=== PATIENT | male | born 1940 | race Caucasian/White ===

== ENCOUNTER → 2017-02-03 | Outpatient (CLI) | payer MEDICARE, OTHER | END | disposition home or self-care (01) | LOC: GMAB 08:00 | PROVIDERS: ATTEND Family Medicine | DX: I10 Essential (primary) hypertension (principal); E03.9 Hypothyroidism, unspecified; Z12.5 Encounter for screening for malignant neoplasm of prostate | CPT/HCPCS: 84439; 84443; 84481; G0103 ==

== ENCOUNTER 2017-05-27 01:13 | Emergency (ER) | payer MEDICARE, OTHER ==
[2017-05-27 01:40] VITALS: TEMP 98
--- NOTE | 2017-05-27 02:09 | RAD ---
EXAM: AP CHEST RADIOGRAPH CLINICAL INDICATION: Left shoulder pain. COMPARISON: Comparison chest radiographs of March 06, 2014. FINDINGS: Intact cardiac pacer components new since the comparison chest radiograph appear in appropriate position on this single view. Cardiac size and pulmonary vasculature are normal. Lungs are clear. No pleural effusions or pneumothorax. No hilar or mediastinal lymphadenopathy. No mediastinal widening. No extraluminal bowel gas under the hemidiaphragms. Bones are intact on this single view. IMPRESSION: Normal portable AP chest radiograph. Electronically signed by: Erick Esteban MD 05/27/2017 2:08 AM [facility]
--- NOTE | 2017-05-27 02:10 | RAD ---
2 VIEWS LEFT SHOULDER RADIOGRAPHIC SERIES. INDICATIONS: Left shoulder pain. COMPARISONS: None. FINDINGS: Partially visualized degenerative disease in the intact left acromioclavicular joint. The left glenohumeral joint appears normal. Partially visualized left lungs are intact. Left lung is clear. No left apical pneumothorax or left apical lung lesion. IMPRESSION: Normal for age left shoulder radiographs. Electronically signed by: Erick Esteban MD 05/27/2017 2:09 AM SALES CLERK
--- NOTE | 2017-05-27 04:28 | ED.PDOC ---
History of Present Illness - General Chief Complaint: General Stated Complaint: shoulder pain and dizziness Time Seen by Provider: 05/27/17 01:20 Source: patient Exam Limitations: no limitations - History of Present Illness Initial Comments: The patient is a 77-year-old male presenting to the emergency room secondary to pain in his left shoulder that did become severe and caused him to be dizzy. He has had pain in the shoulder with flexion at the shoulder intermittently over the past year. He has not had any recent trauma to it. He is not having any chest pain or shortness of breath though he does have a significant cardiac history. No palpitations. No syncope or near syncope. Timing/Duration: 1/2 hour Severity: moderate Improving Factors: nothing Worsening Factors: movement Associated Symptoms: denies symptoms Allergies/Adverse Reactions: Allergies NO KNOWN ALLERGY Allergy (Verified 05/27/17 01:40) Home Medications: Ambulatory Orders Aspirin [Goodsense Aspirin] 325 mg PO BID 03/06/14 Furosemide Tab [Lasix Tab] 40 mg PO DAILY 03/06/14 Gabapentin 300 mg PO BEDTIME 03/06/14 Isosorbide Mononitrate [Imdur] 15 mg PO DAILY 03/06/14 Levocetirizine Dihydrochloride [Xyzal] 5 mg PO DAILY 03/06/14 Levothyroxine Sodium 75 mcg PO DAILY 03/06/14 Lisinopril 5 mg PO DAILY 03/06/14 Potassium Chloride [Micro-K] 10 meq PO DAILY 03/06/14 Simvastatin 40 mg PO DAILY 03/06/14 Tamsulosin [Flomax] 0.4 mg PO DAILY 03/06/14 predniSONE [Prednisone] 20 mg PO DAILY #3 tab 05/27/17 Review of Systems - Review of Systems Constitutional: States: no symptoms reported EENTM: States: no symptoms reported Respiratory: States: no symptoms reported Cardiology: States: no symptoms reported Gastrointestinal/Abdominal: States: no symptoms reported Genitourinary: States: no symptoms reported Musculoskeletal: States: see HPI Skin: States: no symptoms reported Neurological: States: anxiety Endocrine: States: no symptoms reported All other Systems: No Change from Baseline Past Medical History (General) - Patient Medical History Hx Seizures: No Hx Stroke: No Hx Dementia: No Hx Asthma: No Hx of COPD: No Hx Cardiac Disorders: Yes - cardiac stents placed following an episode of angina Hx Congestive Heart Failure: Yes Hx Pacemaker: Yes Hx Hypertension: Yes Hx Thyroid Disease: Yes Hx Diabetes: No Hx Gastroesophageal Reflux: Yes Hx Renal Disease: No Hx Cancer: No Hx of HIV: No Hx Hepatitis C: No Hx MRSA: No Surgical History: no surgical history - Vaccination History Hx Influenza Vaccination: No Hx Pneumococcal Vaccination: No - Social History Hx Tobacco Use: No Family Medical History - Family History Mother Living Status: Hx Family Congestive Heart Failure: Yes Physical Exam - Physical Exam General Appearance: Alert, Anxious, No apparent distress Eye Exam: bilateral normal Ears, Nose, Throat: hearing grossly normal, normal ENT inspection, normal pharynx Neck: full range of motion, supple Respiratory: lungs clear, normal breath sounds, no respiratory distress, no accessory muscle use Cardiovascular/Chest: normal peripheral pulses, no edema, other - regular rate Peripheral Pulses: radial,right: 2+, radial,left: 2+, dorsalis pedis,right: 2+, dorsalis pedis,left: 2+ Gastrointestinal/Abdominal: non tender - obese, soft Rectal Exam: deferred Back Exam: normal inspection, no CVA tenderness Extremity: normal range of motion, non-tender, normal inspection, no pedal edema 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 He needs to do stretching exercises of the shoulder. He needs to discuss doing therapy for that tendon with his primary care doctor. Heat pad as well as icy hot may help. The patient will be written for 3 days of oral prednisone which may also help. He should discuss further treatment measures with his primary care doctor given his medical history. ER warnings were given for any significant worsening. 2 sets of cardiac enzymes are negative. The patient has deferred a third set even though it increases our sensitivity for picking up cardiac ischemic events. - Results/Orders Results/Orders: 05/27/17 01:28 Telemetry .CONTINUOUS 05/27/17 01:30 EKG STAT shows a dual-chamber pacemaker. Difficult to interpret otherwise chest x-ray shows no evidence of any acute pathology.shoulder x-ray shows DJD of the acromioclavicular joint Laboratory Results - last 24 hr 05/27/17 05/27/17 05/27/17 01:35 01:35 01:35 WBC 7.4 RBC 4.67 L Hgb 13.9 L Hct 40.7 L MCV 87.2 MCH 29.7 MCHC 34.2 RDW 14.3 Plt Count 172 MPV 8.6 Absolute Neuts (auto) 4.50 Absolute Lymphs (auto) 1.70 Absolute Monos (auto) 0.70 Absolute Eos (auto) 0.40 Absolute Basos (auto) 0.10 Neutrophils % 61.0 Lymphocytes % 23.7 Monocytes % 9.3 H Eosinophils % 5.0 Basophils % 1.0 PT 10.1 INR 0.890 PTT (SP) 29.4 Sodium 139 Potassium 3.8 Chloride 104 Carbon Dioxide 26 Anion Gap 12.8 BUN 21 H Creatinine 1.25 BUN/Creatinine Ratio 16.8 Random Glucose 102 Serum Osmolality 280.7 Calcium 8.7 Magnesium 2.1 Total Bilirubin 1.5 H AST 23 ALT 21 Alkaline Phosphatase 53 Creatine Kinase 86 CK-MB (CK-2) 2.9 CK-MB (CK-2) % Not Reportable Troponin I 0.03 B-Natriuretic Peptide 44.8 Serum Total Protein 6.9 Albumin 4.0 Globulin 2.9 Albumin/Globulin Ratio 1.4 05/27/17 03:55 WBC RBC Hgb Hct MCV MCH MCHC RDW Plt Count MPV Absolute Neuts (auto) Absolute Lymphs (auto) Absolute Monos (auto) Absolute Eos (auto) Absolute Basos (auto) Neutrophils % Lymphocytes % Monocytes % Eosinophils % Basophils % PT INR PTT (SP) Sodium Potassium Chloride Carbon Dioxide Anion Gap BUN Creatinine BUN/Creatinine Ratio Random Glucose Serum Osmolality Calcium Magnesium Total Bilirubin AST ALT Alkaline Phosphatase Creatine Kinase 78 CK-MB (CK-2) CK-MB (CK-2) % Troponin I B-Natriuretic Peptide Serum Total Protein Albumin Globulin Albumin/Globulin Ratio repeat troponin was less than 0.02. Departure - Departure Clinical Impression: Biceps tendinitis Qualifiers: Laterality: left Qualified Code(s): M75.22 - Bicipital tendinitis, left shoulder Disposition: Discharge to Home or Self Care Condition: Fair Departure Forms: ED Discharge - Pt. Copy, Patient Portal Self Enrollment Instructions: DI for Shoulder Tendinopathy Diet: regular diet Activity: increase activity as tolerated Referrals: Charanjit Borrego MD [Primary Care Provider] - 1-5 Days Prescriptions: predniSONE [Prednisone] 20 mg PO DAILY #3 tab Home Medications: Ambulatory Orders Aspirin [Goodsense Aspirin] 325 mg PO BID 03/06/14 Furosemide Tab [Lasix Tab] 40 mg PO DAILY 03/06/14 Gabapentin 300 mg PO BEDTIME 03/06/14 Isosorbide Mononitrate [Imdur] 15 mg PO DAILY 03/06/14 Levocetirizine Dihydrochloride [Xyzal] 5 mg PO DAILY 03/06/14 Levothyroxine Sodium 75 mcg PO DAILY 03/06/14 Lisinopril 5 mg PO DAILY 03/06/14 Potassium Chloride [Micro-K] 10 meq PO DAILY 03/06/14 Simvastatin 40 mg PO DAILY 03/06/14 Tamsulosin [Flomax] 0.4 mg PO DAILY 03/06/14 predniSONE [Prednisone] 20 mg PO DAILY #3 tab 05/27/17 Additional Instructions: the patient is a 77-year-old male presenting to the emergency room secondary to left shoulder pain that clinically appears to be due to biceps tendinitis most likely from the short head. He needs to do stretching exercises of the shoulder. He needs to discuss doing therapy for that tendon with his primary care doctor. Heat pad as well as icy hot may help. The patient will be written for 3 days of oral prednisone which may also help. He should discuss further treatment measures with his primary care doctor given his medical history. ER warnings were given for any significant worsening.
[2017-05-27 05:04] VITALS: BP 149/72; O2SAT 99
== END 2017-05-27 04:50 | disposition home or self-care (01) ==
LOC: ER 01:13
DX: M75.22 Bicipital tendinitis, left shoulder (principal); I11.0 Hypertensive heart disease with heart failure; I50.9 Heart failure, unspecified; E07.9 Disorder of thyroid, unspecified; Z98.61 Coronary angioplasty status; Z95.0 Presence of cardiac pacemaker; Z79.82 Long term (current) use of aspirin

== ENCOUNTER → 2018-02-21 | Outpatient (CLI) | payer MEDICARE, OTHER | LOC: GMAE 10:57 | PROVIDERS: ATTEND Family Medicine | DX: E03.9 Hypothyroidism, unspecified (principal) ==

== ENCOUNTER 2018-10-02 13:00 | Emergency (ER) | payer MEDICARE, OTHER ==
--- NOTE | 2018-10-02 13:08 | ED.PDOC ---
History of Present Illness - General Time Seen by Provider: 10/02/18 13:05 Source: patient, RN notes reviewed, Vital Signs reviewed Additional Information: 78 YEAR OLD WITH KNOWN HISTORY OF CHF SP PACEMAKER ON LASIX PRESENTS WITH 24 HOUR HISTORY OF DIFFICULTY BREATHING DENIES CHEST PAIN FEVER PRODUCTIVE COUGH PATIENT IS HAVING DIFFICULTY BREATHING AT REST WORSE WITH EXERTION - History of Present Illness Timing/Duration: 24 hours Severity: moderate Improving Factors: nothing Worsening Factors: movement Associated Symptoms: denies symptoms, shortness of breath Allergies/Adverse Reactions: Allergies NO KNOWN ALLERGY Allergy (Verified 05/27/17 01:40) Home Medications: Ambulatory Orders Aspirin [Goodsense Aspirin] 325 mg PO DAILY 03/06/14 Furosemide Tab [Lasix Tab] 40 mg PO DAILY 03/06/14 Potassium Chloride [Micro-K] 10 meq PO DAILY 03/06/14 Simvastatin 40 mg PO DAILY 03/06/14 Doxazosin Mesylate 4 mg PO DAILY 10/02/18 Levothyroxine Sodium [Synthroid] 100 mcg PO DAILY 10/02/18 Meloxicam [Mobic] 7.5 mg PO BID 10/02/18 Metoprolol Succinate [Metoprolol Succinate ER] 12.5 mg PO DAILY 10/02/18 Review of Systems - Review of Systems Constitutional: States: no symptoms reported EENTM: States: no symptoms reported Respiratory: States: see HPI Cardiology: States: see HPI Gastrointestinal/Abdominal: States: no symptoms reported Genitourinary: States: no symptoms reported Musculoskeletal: States: no symptoms reported Skin: States: no symptoms reported Neurological: States: no symptoms reported Endocrine: States: no symptoms reported Hematologic/Lymphatic: States: no symptoms reported Past Medical History (General) - Patient Medical History Hx Seizures: No Hx Stroke: No Hx Dementia: No Hx Asthma: No Hx of COPD: No Hx Cardiac Disorders: Yes - cardiac stents placed following an episode of angina Hx Congestive Heart Failure: Yes Hx Pacemaker: Yes Hx Hypertension: Yes Hx Thyroid Disease: Yes Hx Diabetes: No Hx Gastroesophageal Reflux: Yes Hx Renal Disease: No Hx Cancer: No Hx of HIV: No Hx Hepatitis C: No Hx MRSA: No - Vaccination History Hx Influenza Vaccination: No Hx Pneumococcal Vaccination: No - Social History Hx Tobacco Use: No Family Medical History - Family History Mother Living Status: Hx Family Congestive Heart Failure: Yes Physical Exam - Physical Exam General Appearance: Alert, Comfortable Ears, Nose, Throat: hearing grossly normal, normal ENT inspection, normal pharynx Neck: non-tender, full range of motion, supple Respiratory: chest non-tender, lungs clear, normal breath sounds, no respiratory distress, no accessory muscle use Cardiovascular/Chest: normal peripheral pulses, regular rate, rhythm, no edema, no gallop, no JVD, no murmur Back Exam: normal inspection, no CVA tenderness, no vertebral tenderness Extremity: non-tender, normal inspection, no pedal edema 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-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 as tested, no motor/sensory deficits, alert Skin Exam: normal color, warm/dry Progress - Results/Orders Results/Orders: Laboratory Tests 10/02/18 10/02/18 13:17 13:17 WBC 8.0 RBC 4.91 Hgb 14.6 Hct 43.2 MCV 88.0 MCH 29.8 MCHC 33.8 RDW 14.8 H Plt Count 182 MPV 8.4 Absolute Neuts (auto) 5.50 Absolute Lymphs (auto) 1.60 Absolute Monos (auto) 0.70 Absolute Eos (auto) 0.20 Absolute Basos (auto) 0.10 Neutrophils % 68.5 Lymphocytes % 20.1 Monocytes % 8.1 Eosinophils % 2.1 Basophils % 1.2 PT 9.6 INR 0.96 PTT (SP) 24.3 Sodium 138 Potassium 4.0 Chloride 104 Carbon Dioxide 22 Anion Gap 16.0 BUN 24 H Creatinine 1.11 BUN/Creatinine Ratio 21.6 H Random Glucose 134 H Serum Osmolality 281.7 Calcium 9.1 Magnesium 2.3 Creatine Kinase 56 CK-MB (CK-2) 3.2 CK-MB (CK-2) % Not Reportable Troponin I 0.02 B-Natriuretic Peptide 64.7 PATIENT IS CONCERNED ABOUT SLEEP APNEA HE APPARENTLY WAKES UP IN THE MIDDLE OF THE NIGHT HE THINKS HE HAD QUIT BREATHING HE HAS CENTRAL OBESITY SUGGEST HE SLEEPS WITH A WEDGE PILLOW AND CERTAINLY FOLLOW UP WITH PCP TO GET SLEEP STUDY DONE WE DO NOT FIND ACUTE CARDIOPULMONARY PROBLEMS NOW BASED ON HIS DESCRIPTION LIKE DECOMPENSATION OF CHF OR PNEUMONIA Departure - Departure Clinical Impression: Congestive heart failure, Obesity (BMI 30.0-34.9) Time of Disposition: 15:46 Disposition: Discharge to Home or Self Care Condition: Fair Referrals: HIMANSHU WHITE MD [Primary Care Provider] - 1-2 Weeks Home Medications: Ambulatory Orders Aspirin [Goodsense Aspirin] 325 mg PO DAILY 03/06/14 Furosemide Tab [Lasix Tab] 40 mg PO DAILY 03/06/14 Potassium Chloride [Micro-K] 10 meq PO DAILY 03/06/14 Simvastatin 40 mg PO DAILY 03/06/14 Doxazosin Mesylate 4 mg PO DAILY 10/02/18 Levothyroxine Sodium [Synthroid] 100 mcg PO DAILY 10/02/18 Meloxicam [Mobic] 7.5 mg PO BID 10/02/18 Metoprolol Succinate [Metoprolol Succinate ER] 12.5 mg PO DAILY 10/02/18
--- NOTE | 2018-10-02 13:48 | RAD ---
EXAM DESCRIPTION: Chest,1 View CLINICAL HISTORY: 78 years Male, CHF COMPARISON: Previous study May 27, 2017 TECHNIQUE: AP portable chest. FINDINGS: Heart size is prominent with normal pulmonary vascularity. Cardiac pacer is in place. Right hemidiaphragm is elevated. No consolidating infiltrate. No pulmonary mass or worrisome nodule. No pneumothorax or pleural effusion. Bones are unremarkable. IMPRESSION: No acute process is identified in the chest. Electronically signed by: Rj Marrufo MD 10/02/2018 1:46 PM CDT
[2018-10-02 16:37] VITALS: BP 128/78; TEMP 97.6; O2SAT 96
== END 2018-10-02 16:00 | disposition home or self-care (01) ==
LOC: ER 13:00
DX: I50.9 Heart failure, unspecified (principal); E66.9 Obesity, unspecified; I11.0 Hypertensive heart disease with heart failure; E07.9 Disorder of thyroid, unspecified; K21.9 Gastro-esophageal reflux disease without esophagitis; Z68.34 Body mass index [BMI] 34.0-34.9, adult; Z95.0 Presence of cardiac pacemaker; Z95.5 Presence of coronary angioplasty implant and graft; Z79.82 Long term (current) use of aspirin; Z79.899 Other long term (current) drug therapy

== ENCOUNTER → 2019-01-26 | Outpatient (CLI) | payer MEDICARE, OTHER ==
--- NOTE | 2019-01-26 10:04 | RAD ---
EXAM DESCRIPTION: Knee,Left Complete (accession [id number]), Knee,Right Complete (accession [id number]) CLINICAL HISTORY: 79 years Male, PAIN IN LEFT KNEE COMPARISON: None. Findings: Left knee: Obliteration of the medial compartment with lateral tibial translation. Tricompartmental osteophytes. No significant joint effusion. Vascular calcifications. No acute fracture or dislocation. Right knee: Obliteration of the medial compartment. Lateral tibial translation. Tricompartmental osteophytes. No significant joint effusion. Vascular calcifications. No acute fracture or dislocation. IMPRESSION: Osteoarthritis of the knees. Electronically signed by: Ever Pradhan MD 01/26/2019 10:02 AM [facility]
--- NOTE | 2019-01-26 10:04 | RAD ---
EXAM DESCRIPTION: Knee,Left Complete (accession [id number]), Knee,Right Complete (accession [id number]) CLINICAL HISTORY: 79 years Male, PAIN IN LEFT KNEE COMPARISON: None. Findings: Left knee: Obliteration of the medial compartment with lateral tibial translation. Tricompartmental osteophytes. No significant joint effusion. Vascular calcifications. No acute fracture or dislocation. Right knee: Obliteration of the medial compartment. Lateral tibial translation. Tricompartmental osteophytes. No significant joint effusion. Vascular calcifications. No acute fracture or dislocation. IMPRESSION: Osteoarthritis of the knees. Electronically signed by: Ever Pradhan MD 01/26/2019 10:02 AM [facility]
--- NOTE | 2019-01-26 10:12 | RAD ---
EXAM DESCRIPTION: Pelvis CLINICAL HISTORY: 79 years Male, PAIN IN RIGHT AND LEFT HIP COMPARISON: None. FINDINGS: Two views of the pelvis demonstrate intact bony pelvic ring with the superior and inferior pubic rami and SI joints intact. Mild degenerative changes of both hips, left greater than right is present with slightly greater marginal osteophyte formation and joint space narrowing noted on the left. No fracture or dislocation is seen. The bones are normally mineralized. Destructive or sclerotic changes of metastatic disease are not apparent. IMPRESSION: Essentially negative examination with mild right and slightly greater left hip degenerative arthropathy with at least some marginal osteophyte formation and joint space narrowing particularly evident on the left. Otherwise negative pelvis. Electronically signed by: Wilber Jeong MD 01/26/2019 10:10 AM [facility]
== END ==
LOC: RAD 08:48
PROVIDERS: ATTEND Orthopaedic Surgery
DX: M16.0 Bilateral primary osteoarthritis of hip (principal); M17.0 Bilateral primary osteoarthritis of knee

== ENCOUNTER → 2019-04-12 | Outpatient (CLI) | payer MEDICARE, OTHER ==
--- NOTE | 2019-04-12 15:02 | RAD ---
EXAM DESCRIPTION: Shoulder,Left 2 or More Views CLINICAL HISTORY: PAIN IN LEFT SHOULDER COMPARISON: May 27, 2017 IMPRESSION: 4 views of the left shoulder show no acute fracture, focal bone destruction, or joint dislocation. Mild osteoarthritic changes of the left acromioclavicular joint are seen. 5 mm inferior osteophyte of the acromion process is seen which could contribute to impingement symptoms. Left subclavian dual-lead transvenous cardiac pacemaker is seen. Electronically signed by: Donovan Sanchez MD 04/12/2019 3:00 PM [facility]
== END ==
LOC: RAD 08:18
PROVIDERS: ATTEND Orthopaedic Surgery
DX: M19.012 Primary osteoarthritis, left shoulder (principal); M25.712 Osteophyte, left shoulder; Z95.0 Presence of cardiac pacemaker

== ENCOUNTER → 2019-04-17 | Outpatient (CLI) | payer MEDICARE, OTHER ==
--- NOTE | 2019-04-17 15:26 | RAD ---
EXAM DESCRIPTION: Arthrogram Shoulder Left: RF CLINICAL HISTORY: PAIN IN LEFT SHOULDER COMPARISON: Post-arthrogram CT scan of the left shoulder same date. TECHNIQUE: The procedure was performed by Dr. Dewitt, and was explained to the patient with risks and benefits. The patient gave verbal and written consent. Timeout was performed for identification of patient, body part, and procedure. Contrast mixture of 10 mL non-ionic 300 contrast and 10 mL of sterile normal saline was prepared. Patient supine on the fluoroscopic table with left shoulder in external rotation. The anterior mid superior left glenohumeral joint was localized by fluoroscopy. The skin was marked, then prepped and draped in a sterile fashion. Intradermal, subcutaneous and intramuscular Xylocaine 1%, 4 mL was given for topical anesthesia. A 1.5 inch 25-gauge needle was introduced into the anterior superior left glenohumeral joint capsule under fluoroscopic visualization. A test injection of 2 cc of non-ionic 300 was performed under fluoroscopy. Additional 8 CC of contrast mixture was then injected under fluoroscopy. The patient tolerated the procedure well. Active exercise. Patient was transferred to the CT suite for spiral-axial and reconstruction imaging. No immediate complications. 2 images recorded for the patient's permanent medical record. Total fluoroscopic time was 1.2 minutes. DAP: 4.62 Gy-cm2. IMPRESSION: Successful, fluoroscopic-guided arthrogram of the left glenohumeral joint prior to CT scan. No immediate complications. Please refer to post arthrogram CT scan of the shoulder report today. Electronically signed by: Edmond Dewitt MD 04/17/2019 3:25 PM [facility]
--- NOTE | 2019-04-17 15:47 | CT ---
CT arthrogram left shoulder INDICATION: Shoulder pain pacemaker TECHNIQUE: Helical CT images through the left shoulder post arthrogram with multiplanar reformats This exam was performed according to our departmental dose-optimization program, which includes automated exposure control, adjustment of the mA and/or kV according to patient size and/or use of iterative reconstruction technique. FINDINGS: Pacemaker partially visualized. Generalized muscle marbling grade 1-2. Slightly more pronounced volumetric atrophy up to grade 3 supraspinatus muscle belly. Mild/moderate AC joint arthrosis with fragmented subacromial enthesophyte. No advanced glenohumeral arthrosis. No detachment of the subscapularis. Slight medialization long head bicep. Interstitial and undersurface contrast supraspinatus coronal series 302 image 42 indicating significant interstitial partial tear. No retraction. Infraspinatus appears continuous. No displaced labral tear. IMPRESSION: High-grade interstitial delaminating tear distal supraspinatus without retraction Muscle atrophy most notable in the supraspinatus muscle belly up to grade 3 Moderate AC joint arthrosis Pacemaker Slight medialization long head bicep without dislocation Electronically signed by: Arturo Plascencia MD 04/17/2019 3:46 PM [facility]
== END ==
LOC: CT 09:12
PROVIDERS: ATTEND Orthopaedic Surgery
DX: M19.012 Primary osteoarthritis, left shoulder (principal); M62.512 Muscle wasting and atrophy, not elsewhere classified, left shoulder; M75.92 Shoulder lesion, unspecified, left shoulder; Z95.0 Presence of cardiac pacemaker

== ENCOUNTER → 2019-04-19 | Outpatient (CLI) | payer MEDICARE, OTHER | LOC: GMAE 10:33 | PROVIDERS: ATTEND Family Medicine | DX: E03.9 Hypothyroidism, unspecified (principal); I10 Essential (primary) hypertension; R73.03 Prediabetes; E78.2 Mixed hyperlipidemia; Z12.5 Encounter for screening for malignant neoplasm of prostate | CPT/HCPCS: 84439; 84443; 84481; G0103 ==

== ENCOUNTER → 2019-09-27 | Outpatient (CLI) | payer MEDICARE, OTHER | LOC: LAB.O 09:03 | PROVIDERS: ATTEND Orthopaedic Surgery | DX: Z01.818 Encounter for other preprocedural examination (principal) ==

== ENCOUNTER → 2019-12-05 | Day surgery (SDC) | payer MEDICARE, OTHER | LOC: AMB 05:31 | PROVIDERS: ATTEND Orthopaedic Surgery | DX: Z53.09 Procedure and treatment not carried out because of other contraindication (principal) ==

== ENCOUNTER → 2019-12-31 | Outpatient (CLI) | payer MEDICARE, OTHER | LOC: LAB.O 09:27 | PROVIDERS: ATTEND Orthopaedic Surgery | DX: Z01.818 Encounter for other preprocedural examination (principal) ==

== ENCOUNTER 2020-01-14 05:44 | Inpatient (IN) | payer MEDICARE, OTHER ==
[2020-01-14] MEDS ORDERED: SODIUM CHL 0.9% 100ML MINI-BAG 100 ML IVPB ONE (05:50)
[2020-01-14] MEDS ORDERED: VANCOMYCIN HCL INJ 1,000 MG VIAL IVPB ONE (05:50)
[2020-01-14] MEDS ORDERED: SODIUM CHLORIDE 0.9% 250ML 250 ML ONE ×2 (05:50→05:55)
[2020-01-14] MEDS ORDERED: SODIUM CHLORIDE 0.9% 100ML 100 ML IVPB ONE (05:50)
[2020-01-14] MEDS ORDERED: LACTATED RINGERS 1,000 ML ONE (05:50)
[2020-01-14] MEDS ORDERED: TRANEXAMIC ACID 1,000 MG/10 ML VIAL ONE (05:50)
[2020-01-14] MEDS ORDERED: SODIUM CHLORIDE 0.9% (FLUSH) 10 ML SYG ONE (05:50)
[2020-01-14] MEDS ORDERED: HYDROmorphone HCL INJ 2 MG/ML VIAL ONE (06:35)
[2020-01-14] MEDS ORDERED: KETAMINE HCL 100 MG/ML VIAL ONE (06:35)
[2020-01-14] MEDS ORDERED: MIDAZOLAM INJ 5 MG/5 ML VIAL ONE (06:35)
[2020-01-14] MEDS ORDERED: FAMOTIDINE INJ 10 MG/ML VIAL IV ONE (06:36)
[2020-01-14] MEDS: BUPIVACAINE LIPOSOME 13.3 MG/ML VIAL INJ ONE ×4 (08:03→11:05)
[2020-01-14] MEDS: ceFAZolin SODIUM 1 GM VIAL ONE ×9 (08:03→11:21)
[2020-01-14] MEDS: BUPIVACAINE 0.5% 30 ML VIAL INJ ONE ×4 (08:03→11:05)
[2020-01-14] MEDS: VANCOMYCIN HCL INJ 1,000 MG VIAL IVPB ONE ×7 (08:03→11:21)
[2020-01-14] MEDS ORDERED: ELECTROLYTE-A 1,000 ML IVS ONE (08:35)
[2020-01-14] MEDS ORDERED: MAGNESIUM HYDROXIDE 30 ML UD PO PRN (11:43)
[2020-01-14] MEDS ORDERED: BISACODYL SUPPOSITORY 10 MG PR PRN (11:43)
[2020-01-14] MEDS ORDERED: DEX 5% W/NACL 0.45% 1000ML 1,000 ML IVS PRN (11:43)
[2020-01-14] MEDS ORDERED: BENZOCAINE-MENTH LOZ (CEPACOL) 1 EA LOZ MT PRN (11:43)
[2020-01-14] MEDS ORDERED: MORPHINE SULFATE INJ 10 MG/ML VIAL IM PRN (11:43)
[2020-01-14] MEDS ORDERED: TEMAZEPAM 15 MG CAP PO PRN (11:43)
[2020-01-14] MEDS ORDERED: MORPHINE SULFATE INJ 10 MG/ML VIAL IV PRN (11:43)
[2020-01-14] MEDS ORDERED: NALOXONE HCL INJ 0.4 MG/ML VIAL IV PRN (11:43)
[2020-01-14] MEDS ORDERED: ZOLPIDEM TARTRATE 5 MG TAB PO PRN (11:43)
[2020-01-14] MEDS ORDERED: ALUMINUM & MAGNESIUM HYDROXIDE 30 ML UD PO PRN (11:43)
[2020-01-14] MEDS ORDERED: PROMETHAZINE HCL INJ 25 MG in SODIUM CHLORIDE 0.9% 50ML 50 ML IVPB PRN (11:43)
[2020-01-14] MEDS ORDERED: ACETAMINOPHEN 325 MG TAB PO PRN (11:43)
[2020-01-14] MEDS ORDERED: traMADol HCL 50 MG TAB PO PRN (11:43)
[2020-01-14] MEDS ORDERED: ACETAMINOPHEN 500 MG TAB PO PRN (11:43)
[2020-01-14] MEDS ORDERED: TRANEXAMIC ACID INJ 1,000 MG in SODIUM CHLORIDE 0.9% 100ML 100 ML IVPB ONE (11:43)
[2020-01-14] MEDS ORDERED: PROMETHAZINE HCL INJ 12.5 MG in SODIUM CHLORIDE 0.9% 50ML 50 ML IVPB PRN (11:43)
[2020-01-14] MEDS ORDERED: ONDANSETRON INJ 4 MG/2 ML VIAL IV PRN (11:43)
[2020-01-14] MEDS ORDERED: SODIUM CHLORIDE 0.9% (FLUSH) 10 ML SYG IV PRN (11:43)
[2020-01-14] MEDS ORDERED: IV SET AND CAP CHANGE INJ INJ SCH (12:00)
[2020-01-14] MEDS ORDERED: MORPHINE PCA 1 MG/ML 100 ML BAG IVPB SCH (12:00)
[2020-01-14] MEDS ORDERED: CADD ADMIN SET 1 EA PKG INJ ONE (12:22)
--- NOTE | 2020-01-14 14:52 | CONS ---
SUPERVISING PHYSICIAN: Zachary Harrell MD DATE OF CONSULTATION: 01/14/20 REASON FOR CONSULTATION: Medical management postoperative bilateral total knee arthroplasty. HISTORY OF PRESENT ILLNESS: This is a 79-year-old male patient who has a significant history of osteoarthritis of his bilateral knees. Conservative measures have failed to give him relief from pain and other symptoms, so he requested Dr. Albert Thompson, orthopedic surgeon, for operative intervention for bilateral total knee arthroplasties. He was admitted to the hospital this morning prior to surgery. He had both knees replaced today in surgery. There were no intraoperative complications and I am seeing the patient postoperatively in medical consultation on the Medical/Surgical Floor. PAST MEDICAL HISTORY: 1. Seasonal allergies. 2. Coronary artery disease. 3. Hyperlipidemia. 4. Hypertension. 5. Osteoarthritis of bilateral knees. PAST SURGICAL HISTORY: 1. Coronary stent placement. 2. Pacemaker insertion. OUTPATIENT MEDICATIONS: 1. Aspirin. 2. Mobic. 3. Multivitamin with minerals. 4. Citalopram. 5. Doxazosin. 6. Furosemide. 7. Gabapentin. 8. Levothyroxine. 9. Metoprolol. 10. Potassium chloride. 11. Simvastatin. ALLERGIES: NO KNOWN DRUG ALLERGIES. SOCIAL HISTORY: He lives in [place]. He is . 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 He denies any tobacco, ETOH or illicit drug use. REVIEW OF SYSTEMS: Negative except as per history of present illness. PHYSICAL EXAMINATION: VITAL SIGNS: Temperature 97.7, heart rate 65, blood pressure 112/74, respiratory rate 15, O2 saturation 95% on 4 liters nasal cannula. GENERAL: This is a 80-year-old male patient lying in his hospital bed. He is somewhat drowsy, but he is in no acute distress. HEENT: Normocephalic, atraumatic. Pupils are equal and reactive. Oropharynx is clear. NECK: Supple without mass. RESPIRATORY: Essentially clear to auscultation bilaterally. CARDIOVASCULAR: Regular rate and rhythm. GASTROINTESTINAL: Abdomen is soft, nondistended, nontender. Bowel sounds are hypoactive. EXTREMITIES: He has bilateral dressings to his knees. Pedal pulses are palpable at +2. He has the iceman on his right knee. NEUROLOGIC: He is slightly lethargic, but he is oriented times three. LABORATORY: WBCs 6.9, hemoglobin 13.7, hematocrit 39.7. Coagulation studies are within normal limits. Electrolytes are within normal limits. BUN 20, creatinine 1.19. Urinalysis is negative. His UDS is negative. RADIOLOGY: Reports are as per the EMR. IMPRESSION: 1. Osteoarthritis of bilateral knees status post bilateral total knee arthroplasties performed by Dr. Albert Thompson, orthopedic surgeon, postoperative day #0. 2. Coronary artery disease. 3. Hyperlipidemia. 4. Hypertension. PLAN: We will continue present supportive care and follow Dr. Thompson's postoperative orthopedic orders. I have restarted his home medications and encouraged good pulmonary hygiene. We will monitor his lab tomorrow. He will begin his physical therapy for strengthening and conditioning. We will continue to monitor the patient closely and follow as needed. #[id number] [facility]
[2020-01-14] MEDS: ceFAZolin SODIUM 2 GM in SODIUM CHLORIDE 0.9% 100ML 100 ML IVPB SCH (16:21)
[2020-01-14] MEDS: VANCOMYCIN HCL INJ 1,000 MG in SODIUM CHLORIDE 0.9% 250ML 250 ML IVPB SCH (17:12)
[2020-01-14] MEDS ORDERED: PROPOFOL 200 MG/20 ML VIAL IV ONE ×2 (17:34→17:35)
[2020-01-14] MEDS ORDERED: MAGNESIUM SULFATE INJ 1 GM/2 ML VIAL IVPB ONE (17:35)
[2020-01-14] MEDS ORDERED: SODIUM CHLORIDE 0.9% 50 ML VIAL INJ ONE (17:35)
[2020-01-14] MEDS ORDERED: ceFAZolin SODIUM 1 GM VIAL IVPB ONE (17:35)
[2020-01-14] MEDS ORDERED: DEXAMETHASONE INJ 10 MG/ML VIAL IV ONE (17:35)
[2020-01-14] MEDS ORDERED: EPINEPHrine HCL AMP 1 MG/ML AMP IVPB ONE (17:35)
--- NOTE | 2020-01-14 17:58 | RAD ---
EXAM DESCRIPTION: Knee,Right 1 or 2 Views CLINICAL HISTORY: TKA COMPARISON: 26 January 2019 TECHNIQUE: 2 views right FINDINGS: A right total knee arthroplasty is observed in place. Positioning is near-anatomic. Postoperative air is observed anteriorly. IMPRESSION: New right total knee arthroplasty. Electronically signed by: Prabhjot Thompson MD 01/14/2020 5:57 PM CDT
--- NOTE | 2020-01-14 17:58 | RAD ---
EXAM DESCRIPTION: Knee,Left 1 or 2 Views CLINICAL HISTORY: TKA COMPARISON: 26 January 2019 TECHNIQUE: 2 views left FINDINGS: A new left total knee arthroplasty is observed in place. Positioning is near-anatomic. Postoperative air is observed anteriorly. IMPRESSION: New left total knee arthroplasty. Electronically signed by: Prabhjot Thompson MD 01/14/2020 5:56 PM CDT
[2020-01-14] MEDS: hydrOXYzine HCl 25 MG TAB PO PRN (19:18)
[2020-01-14] MEDS: DOCUSATE CALCIUM 240 MG CAP PO SCH (21:41)
[2020-01-14] MEDS: DOXAZOSIN MESYLATE 2 MG TAB PO SCH (21:41)
[2020-01-14] MEDS: CYCLOBENZAPRINE HCL 10 MG TAB PO PRN (21:41)
[2020-01-14] MEDS: GABAPENTIN 300 MG CAP PO SCH (21:42)
[2020-01-14] MEDS: SIMVASTATIN 20 MG TAB PO SCH (21:42)
[2020-01-14] MEDS: HYDROcodone 5MG/APAP 325MG 1 EA TAB PO PRN (21:43)
[2020-01-14] MEDS: POTASSIUM CHLORIDE 10 MEQ TAB PO SCH (21:43)
[2020-01-14] MEDS: ENOXAPARIN SODIUM 30 MG/0.3 ML SYG SUBCU SCH (23:16)
[2020-01-15] MEDS: ceFAZolin SODIUM 2 GM in SODIUM CHLORIDE 0.9% 100ML 100 ML IVPB SCH ×2 (00:30→08:58)
[2020-01-15] MEDS ORDERED: LEVOTHYROXINE SODIUM 0.1 MG TAB ONE (04:49)
[2020-01-15] MEDS: VANCOMYCIN HCL INJ 1,000 MG in SODIUM CHLORIDE 0.9% 250ML 250 ML IVPB SCH (06:15)
[2020-01-15] MEDS: LEVOTHYROXINE SODIUM 0.1 MG TAB PO SCH (06:16)
[2020-01-15] MEDS: CELECOXIB 100 MG CAP PO SCH (07:52)
[2020-01-15] MEDS: CITALOPRAM HBR 20 MG TAB PO SCH (08:41)
[2020-01-15] MEDS: FUROSEMIDE 40 MG TAB PO SCH (08:42)
[2020-01-15] MEDS: MAGNESIUM OXIDE 400 MG TAB PO SCH (08:43)
[2020-01-15] MEDS: METOPROLOL SUCCINATE XL 25 MG TAB PO SCH (08:43)
[2020-01-15] MEDS: hydrOXYzine HCl 25 MG TAB PO PRN (10:17)
[2020-01-15] MEDS: HYDROcodone 10MG/APAP 325MG 1 EA TAB PO PRN ×2 (10:17→21:00)
[2020-01-15] MEDS: CYCLOBENZAPRINE HCL 10 MG TAB PO PRN ×2 (10:17→21:00)
[2020-01-15] MEDS: ENOXAPARIN SODIUM 30 MG/0.3 ML SYG SUBCU SCH ×2 (10:18→23:22)
--- NOTE | 2020-01-15 13:09 | PN ---
DATE: 01/15/20 SUBJECTIVE: Mr. Frank is doing well. He is up to a chair and has been walking today. OBJECTIVE: Afebrile. Vital signs stable. Dressings are clean, dry and intact. ASSESSMENT: Status post bilateral total knee arthroplasty. PLAN: The plan at this point is for him to continue physical therapy today. #[id number] MTDD
[2020-01-15] MEDS: HYDROcodone 5MG/APAP 325MG 1 EA TAB PO PRN (15:04)
--- NOTE | 2020-01-15 17:03 | PN ---
SUPERVISING PHYSICIAN: DATE: 01/15/20 SUBJECTIVE: The patient has been in quite a bit of pain today, although it was reported by physical therapy that he did fairly well. He denies any chest pain, shortness of breath, nausea or vomiting. OBJECTIVE: VITAL SIGNS: Temperature 97.8, heart rate 74, blood pressure 137/74, respiratory rate 22, oxygen saturation 98% on room air. CHEST: Essentially clear to auscultation bilaterally. HEART: Regular rate and rhythm. EXTREMITIES: He has dressing to his right knee that is dry and intact. Bilateral pedal pulses are palpable at +2. NEUROLOGIC: He is awake, alert, and oriented x3. LABORATORY: Followup hemoglobin 12.1, hematocrit 35.6. All other labs and films have been reviewed via the EMR. IMPRESSION: 1. Osteoarthritis of bilateral knees status post bilateral total knee arthroplasties performed by Dr. Albert Thompson, orthopedic surgeon, postoperative day #1. 2. Coronary artery disease. 3. Hyperlipidemia. 4. Hypertension. PLAN: We will continue present supportive care. Orthopedic issues will be per Dr. Albert Thompson, orthopedic surgeon. We will continue with his physical therapy for strengthening and conditioning. Shoe Laster has spoken with the patient in regard to his discharge planning which most likely will be a rehabilitation facility. I have encouraged good pulmonary hygiene and will continue to monitor him closely and follow as needed. #[id number] [facility]
[2020-01-15] MEDS: GABAPENTIN 300 MG CAP PO SCH (20:59)
[2020-01-15] MEDS: DOXAZOSIN MESYLATE 2 MG TAB PO SCH (20:59)
[2020-01-15] MEDS: SIMVASTATIN 20 MG TAB PO SCH (20:59)
[2020-01-15] MEDS: POTASSIUM CHLORIDE 10 MEQ TAB PO SCH (20:59)
[2020-01-15] MEDS: DOCUSATE CALCIUM 240 MG CAP PO SCH (20:59)
[2020-01-16] MEDS: HYDROcodone 10MG/APAP 325MG 1 EA TAB PO PRN ×3 (06:02→21:10)
[2020-01-16] MEDS: CYCLOBENZAPRINE HCL 10 MG TAB PO PRN ×2 (06:02→21:14)
[2020-01-16] MEDS: LEVOTHYROXINE SODIUM 0.1 MG TAB PO SCH (06:02)
[2020-01-16] MEDS: CELECOXIB 100 MG CAP PO SCH (09:29)
[2020-01-16] MEDS: METOPROLOL SUCCINATE XL 25 MG TAB PO SCH (09:30)
[2020-01-16] MEDS: FUROSEMIDE 40 MG TAB PO SCH (09:30)
[2020-01-16] MEDS: CITALOPRAM HBR 20 MG TAB PO SCH (09:30)
[2020-01-16] MEDS: MAGNESIUM OXIDE 400 MG TAB PO SCH (09:30)
[2020-01-16] MEDS: SODIUM CHLORIDE 0.9% (FLUSH) 10 ML SYG IV SCH ×2 (09:30→21:12)
--- NOTE | 2020-01-16 10:29 | OP ---
DATE OF PROCEDURE: 01/14/20 PREOPERATIVE DIAGNOSIS: 1. Bilateral knee osteoarthritis. POSTOPERATIVE DIAGNOSIS: 1. Bilateral knee osteoarthritis. PROCEDURE: 1. Bilateral total knee arthroplasty. SURGEON: Albert Thompson MD. SLUNK SKIN CURER: Edmond Vieira CST, -[place]. ANESTHESIA: General anesthesia. COMPLICATIONS: None. FINDINGS: Severe osteoarthritis of the knees with varus deformity bilaterally. INDICATION: Mr. Frank has a long history of severe knee pain. He has had pain that has been refractory to conservative measures. Because of the nature of his pain and the fact that he failed conservative measures, he requested operative intervention. After discussing the risks, benefits and alternatives to operative therapy, the patient has given informed consent for total knee arthroplasty. PROCEDURE: The patient was brought to the Operating Room and placed in supine position. General anesthesia was induced and the patient's left leg was sterilely prepped and draped. Following prepping and draping, the distal femur was exposed and using an intramedullary guide, the distal femoral cut was made. The appropriate sized cutting block was measured, pinned into place, and the anterior, posterior, and chamfer cuts were made. The ACL was transected and the tibia was subluxed. Both the medial and lateral menisci were removed. An intramedullary guide was used to make the proximal tibial cut. The appropriate sized base plate was placed and a trial polyethylene was placed. The trial femur was placed, the knee was reduced, and the knee was taken through a range of motion. The knee was stable in anterior, posterior, varus and valgus stress. The patella tracked anatomically without evidence of subluxation or dislocation. After trialing, the trial components were removed and the bony surfaces were thoroughly irrigated with saline. Following irrigation, the surfaces were dried and the final components were cemented into place. The excess cement was removed and the remaining cement was allowed to cure. The knee was again taken through a range of motion to confirm stability. The wound was then irrigated with saline and closure was performed using PDS to approximate the arthrotomy followed by closure of the subcutaneous tissues with a combination of running and interrupted Monocryl sutures. Sterile dressing was placed. The room was broken down and the patient's right knee was then sterilely prepped and draped and the procedure was carried out in its entirety exactly as it had been on the left. Following that, the knee was sterilely dressed. The patient was awoken from anesthesia and taken to Recovery. COMPONENTS: Ruffin Triathlon knee, size 5 femoral component, size 5 tibial component, 9 mm insert bilaterally. POSTOPERATIVE PLAN: The patient will be admitted for postoperative physical therapy with weight-bearing as tolerated on postoperative day 1. #[id number] MTDD
[2020-01-16] MEDS: ENOXAPARIN SODIUM 30 MG/0.3 ML SYG SUBCU SCH ×2 (13:03→23:07)
--- NOTE | 2020-01-16 20:12 | PN ---
SUPERVISING PHYSICIAN: Carmelo Harrell MD DATE: 01/16/20 SUBJECTIVE: The patient says he is doing fairly well this morning. His pain is a lot worse than he thought it was going to be initially. He has been working with physical therapy. He may be getting [facility] which I think will take place tomorrow. He has no further complaints. He has been afebrile. OBJECTIVE: VITAL SIGNS: Temperature 97, pulse 81, blood pressure 124/72, respirations 18, oxygen saturation 96% on room air. GENERAL: Patient looks to be resting comfortably, he is eating lunch. CHEST: Clear to auscultation. HEART: Regular rate and rhythm. ABDOMEN: Obese, soft, non-tender, positive bowel sounds. EXTREMITIES: Dressing is in place over both knees, dry and intact. Pedal pulses were 2+ bilaterally. NEUROLOGICAL: He is alert and oriented x3. LABORATORY: No additional studies today. RADIOLOGY: No additional studies. ASSESSMENT: 1. Osteoarthritis of bilateral knees status post bilateral total knee arthroplasties performed by Dr. Albert Thompson, orthopedic surgeon, postoperative day #2. 2. Coronary artery disease. 3. Hyperlipidemia. 4. Hypertension. PLAN: Will continue to follow the patient along with his physical therapy efforts and rehabilitation, possibility of [facility] in the morning if possible. He has been encouraged aggressive bronchial hygiene. Until we can transition him to outpatient management, we will continue to monitor and treat as needed. #[id number] MTDD
[2020-01-16] MEDS: POTASSIUM CHLORIDE 10 MEQ TAB PO SCH (21:09)
[2020-01-16] MEDS: DOCUSATE CALCIUM 240 MG CAP PO SCH (21:11)
[2020-01-16] MEDS: SIMVASTATIN 20 MG TAB PO SCH (21:13)
[2020-01-16] MEDS: DOXAZOSIN MESYLATE 2 MG TAB PO SCH (21:15)
[2020-01-16] MEDS: GABAPENTIN 300 MG CAP PO SCH (21:16)
[2020-01-17] MEDS: LEVOTHYROXINE SODIUM 0.1 MG TAB PO SCH (06:18)
[2020-01-17] MEDS: FUROSEMIDE 40 MG TAB PO SCH (08:06)
[2020-01-17] MEDS: CELECOXIB 100 MG CAP PO SCH (08:06)
[2020-01-17] MEDS: MAGNESIUM OXIDE 400 MG TAB PO SCH (08:06)
[2020-01-17] MEDS: CITALOPRAM HBR 20 MG TAB PO SCH (08:07)
[2020-01-17] MEDS: METOPROLOL SUCCINATE XL 25 MG TAB PO SCH (08:07)
[2020-01-17] MEDS: SODIUM CHLORIDE 0.9% (FLUSH) 10 ML SYG IV SCH (08:08)
[2020-01-17] MEDS: HYDROcodone 10MG/APAP 325MG 1 EA TAB PO PRN ×2 (08:15→12:15)
--- NOTE | 2020-01-17 08:46 | PN ---
DATE: 01/17/20 SUBJECTIVE: Mr. Frank is doing well. OBJECTIVE: Afebrile. Vital signs stable. Wounds are clean. There are no signs or symptoms of infection. ASSESSMENT: Status post bilateral total knee arthroplasty. PLAN: The plan at this point is for him to continue with weightbearing as tolerated. #[id number] [facility]
[2020-01-17] MEDS ORDERED: DOXYCYCLINE HYCLATE CAP 100 MG CAP PO SCH (09:00)
[2020-01-17 10:38] VITALS: BP 120/65; TEMP 98.2; O2SAT 94
[2020-01-17] MEDS: ENOXAPARIN SODIUM 30 MG/0.3 ML SYG SUBCU SCH (11:25)
[2020-01-17] MEDS ORDERED: BISACODYL SUPPOSITORY 10 MG PR ONE (21:00)
[2020-01-17] MEDS ORDERED: MAGNESIUM HYDROXIDE 30 ML UD PO ONE (21:00)
--- NOTE | 2020-01-23 08:24 | DS ---
SUPERVISING PHYSICIAN: Zachary Harrell MD ADMISSION DIAGNOSIS: 1. Osteoarthritis of bilateral knees status post bilateral total knee arthroplasties performed by Dr. Albert Thompson, orthopedic surgeon, postoperative day #0. 2. Coronary artery disease. 3. Hyperlipidemia. 4. Hypertension. DISCHARGE DIAGNOSIS: 1. Osteoarthritis of bilateral knees status post bilateral total knee arthroplasties performed by Dr. Albert Thompson, orthopedic surgeon, postoperative day #3. 2. Coronary artery disease. 3. Hyperlipidemia. 4. Hypertension. REASON FOR HOSPITALIZATION: This is a 79-year-old male patient who has a significant history of osteoarthritis of his bilateral knees. Conservative measures have failed to give him relief from pain and other symptoms, so he requested Dr. Albert Thompson, orthopedic surgeon, for operative intervention for bilateral total knee arthroplasties. He was admitted to the hospital this morning prior to surgery. He had both knees replaced today in surgery. There were no intraoperative complications and I am seeing the patient postoperatively in medical consultation on the Medical/Surgical Floor. LABORATORY: Postoperative hemoglobin 12.1, hematocrit 35.6. Coagulation studies studies showed normal PT/PTT. Urinalysis within normal limits. Preoperative drug screen was negative. MICROBIOLOGY: COVID swab was negative. RADIOLOGY: Please see pre and postoperative x-rays for details. MEDICAL CONSULTATION: Hospitalist, Raiza Newman, please see her report for details. PROCEDURE: Bilateral total knee arthroplasty. Please see Dr. Thompson's report for details. HOSPITAL COURSE: Mr. Frank was admitted for elective total knee arthroplasty bilaterally. He did well intraoperatively. Postoperatively, he did fairly well. He was having, of course, some difficulty with ambulation, but was able to do physical therapy, but was found to be in need of ongoing therapy that was more aggressive. Therefore, arrangements were made for him once he was found to be clinically stable to discharge to [facility] for ongoing physical therapy. PLAN: The patient was discharged and transferred to [facility] for ongoing physical therapy. He did have some issues with urinary retention and required replacement of his Samuel catheter. He was started on doxycycline and continued on doxycycline 100 mg q.12h. for 5 days. He is still on Xarelto 10 mg for 14 days. He is to followup with Dr. Thompson once he is discharged as instructed. CONDITION ON DISCHARGE: Stable. DISPOSITION: The patient was transferred to [facility] in [place]. #[id number] [facility]
== END 2020-01-17 12:18 | DRG 462 ==
LOC: AMB 05:44 → MS 12:00
PROVIDERS: ADMIT Orthopaedic Surgery; ATTEND Nurse Practitioner Family
PROC: 0SRC0J9 Replacement of Right Knee Joint with Synthetic Substitute, Cemented, Open Approach (ICD-10-PCS; 2020-01-14)
PROC: 0SRD0J9 Replacement of Left Knee Joint with Synthetic Substitute, Cemented, Open Approach (ICD-10-PCS; principal; 2020-01-14 07:07)
DX: M17.0 Bilateral primary osteoarthritis of knee (principal); J30.2 Other seasonal allergic rhinitis; I25.10 Atherosclerotic heart disease of native coronary artery without angina pectoris; E78.5 Hyperlipidemia, unspecified; I10 Essential (primary) hypertension; Z95.5 Presence of coronary angioplasty implant and graft; Z95.0 Presence of cardiac pacemaker; Z79.82 Long term (current) use of aspirin; Z79.1 Long term (current) use of non-steroidal anti-inflammatories (NSAID); Z79.899 Other long term (current) drug therapy; Z79.02 Long term (current) use of antithrombotics/antiplatelets

== ENCOUNTER 2020-02-01 12:37 | Inpatient (IN) | payer MEDICARE, OTHER ==
--- NOTE | 2020-02-01 12:56 | ED.PDOC ---
History of Present Illness - General Time Seen by Provider: 02/01/20 12:52 Additional Information: Patient is a 80-year-old male who presents to the ED with chief complaint of shortness of breath. At the end of December patient had elective bilateral knee replacements and has been in rehab until just a few days ago. In rehab 3 days ago patient developed a low-grade fever and was tested for Covid and tested positive. Patient was just discharged from rehab yesterday and today patient developed shortness of breath with the slightest exertion. He is relatively comfortable at rest. Patient has a history of CAD with stents but denies history of any intrinsic lung disease. He is a non-smoker. Patient denies chest pain, nausea, vomiting, fever, chills presently. He does indicate he has a frequent congested cough. Patient is otherwise asymptomatic. - History of Present Illness Allergies/Adverse Reactions: Allergies Rifampin Allergy (Verified 02/01/20 13:01) Other itching Sulfamethoxazole w/Trimethoprim [From Bactrim] Allergy (Verified 02/01/20 13:01) Other itching Home Medications: Ambulatory Orders Aspirin [Goodsense Aspirin] 325 mg PO DAILY 03/06/14 Furosemide Tab [Lasix Tab] 40 mg PO DAILY 03/06/14 Potassium Chloride [Micro-K] 10 meq PO BEDTIME 03/06/14 Simvastatin 40 mg PO DAILY 03/06/14 Doxazosin Mesylate 4 mg PO BEDTIME 10/02/18 Levothyroxine Sodium [Synthroid] 100 mcg PO DAILY 10/02/18 Meloxicam [Mobic] 7.5 mg PO BID 10/02/18 Metoprolol Succinate [Metoprolol Succinate ER] 12.5 mg PO DAILY 10/02/18 Citalopram Hydrobromide [Citalopram] 20 mg PO DAILY 01/11/20 Gabapentin 600 mg PO BEDTIME 01/11/20 Multiple Vitamins W/ Minerals [Multivitamin Men 50+] 1 tab PO DAILY 01/11/20 Doxycycline Hyclate [Vibramycin] 100 mg PO Q12H #10 cap 01/17/20 Rivaroxaban [Xarelto] 10 mg PO DAILY #14 tab 01/17/20 Review of Systems - Review of Systems Constitutional: Denies: chills, fever EENTM: States: no symptoms reported. Denies: nose congestion Respiratory: States: see HPI, cough, short of breath. Denies: orthopnea, wh eezing Cardiology: States: no symptoms reported. Denies: chest pain, palpitations Gastrointestinal/Abdominal: States: no symptoms reported. Denies: abdominal pain, nausea, vomiting Musculoskeletal: States: no symptoms reported Skin: States: no symptoms reported. Denies: rash Neurological: States: no symptoms reported All other Systems: Reviewed and Negative Past Medical History (General) - Patient Medical History Hx Seizures: No Hx Stroke: No Hx Dementia: No Hx Asthma: No Hx of COPD: No Hx Cardiac Disorders: Yes - cardiac stents placed following an episode of angina Hx Congestive Heart Failure: No Hx Pacemaker: Yes Hx Hypertension: Yes Hx Thyroid Disease: Yes Hx Diabetes: No Hx Gastroesophageal Reflux: Yes Hx Renal Disease: No Hx Cancer: No Hx of HIV: No Hx Hepatitis C: No Hx MRSA: No - pos for sa, on abx MRSA Source:: nares-sa - Vaccination History Hx Influenza Vaccination: No Hx Pneumococcal Vaccination: No - Social History Hx Tobacco Use: No Hx Alcohol Use: No Hx Substance Use: No Hx Physical Abuse: No Hx Emotional Abuse: No Family Medical History - Family History Mother Living Status: Hx Family Congestive Heart Failure: Yes Hx Family Hypertension: Yes Physical Exam - Physical Exam General Appearance: Comfortable, No apparent distress, Well Developed, Well Nourished, Other - Patient is hypoxic, 82% on room air. Eyes, Ears, Nose, Throat Exam: normal ENT inspection, pharynx normal Neck: non-tender, full range of motion, supple, normal inspection Respiratory: chest non-tender, lungs clear, normal breath sounds, no respiratory distress, no accessory muscle use, other - Occasional congested cough Cardiovascular/Chest: normal peripheral pulses, regular rate, rhythm, no edema, no gallop, no JVD, no murmur Peripheral Pulses: radial,right: 2+, radial,left: 2+ Gastrointestinal/Abdominal: normal bowel sounds, non tender, soft, no organomegaly, no pulsatile mass Extremity: normal inspection, no pedal edema Neurologic: oven press tender II-XII nml as tested, no motor/sensory deficits, alert, normal mood/affect, oriented x 3 Skin Exam: normal color, warm/dry Progress - Progress Progress: 02/01/20 13:00 Differential diagnosis includes but is not limited to Covid pneumonia, ACS, PE, CHF. 02/01/20 13:50 EKG: Ventricular paced rhythm, rate of 86, ST and T wave changes consistent with pacing, wide QRS,. Negative STEMI. No old EKGs for comparison. 02/01/20 19:54 Patient reassessed and is feeling much better at this time. Patient presented with hypoxia on room air, his O2 sats improved to the mid 90s with nasal cannula oxygen. Patient has known Covid and his D-dimer was elevated but his CT chest did not show any evidence of PE although the study was noted to be suboptimal. Patient is however on Xarelto following his bilateral knee replacement and it would be very low probability for patient to develop a PE on Xarelto. Accordingly, I am not giving patient any additional anticoagulants other than his daily Xarelto. Patient's H/H is below patient's baseline at 9.6/28.2. However, these values are following his bilateral knee replacements and I suspect he had blood loss during the surgery and his anemia is expected. Patient has no evidence of bleeding and specifically denies black or bloody stools. Patient's troponin is slightly elevated at 0.06 and I am repeating to evaluate for non-STEMI. Patient's EKG is nonacute. Will reassess patient following his repeat troponin. 02/01/20 21:27 Patient's repeat troponin is unchanged. Patient's O2 sat on 2 L nasal cannula fluctuates reliably from 90% to 94%. Patient has gotten up and ambulated to the bathroom without difficulty. Patient will require admission for Covid pneumonia and I believe he is safe for admission to [facility] and does not require transfer at this time. 02/01/20 21:38 I have discussed the case with Mark Zhong, hospitalist, who accepts patient for admission. Departure - Departure Clinical Impression: Hypoxia Anemia Qualifiers: Anemia type: unspecified type Qualified Code(s): D64.9 - Anemia, unspecified Time of Disposition: 21:39 Disposition: Admit Patient Condition: Fair Home Medications: Ambulatory Orders Aspirin [Goodsense Aspirin] 325 mg PO DAILY 03/06/14 Furosemide Tab [Lasix Tab] 40 mg PO DAILY 03/06/14 Potassium Chloride [Micro-K] 10 meq PO BEDTIME 03/06/14 Simvastatin 40 mg PO DAILY 03/06/14 Doxazosin Mesylate 4 mg PO BEDTIME 10/02/18 Levothyroxine Sodium [Synthroid] 100 mcg PO DAILY 10/02/18 Meloxicam [Mobic] 7.5 mg PO BID 10/02/18 Metoprolol Succinate [Metoprolol Succinate ER] 12.5 mg PO DAILY 10/02/18 Citalopram Hydrobromide [Citalopram] 20 mg PO DAILY 01/11/20 Gabapentin 600 mg PO BEDTIME 01/11/20 Multiple Vitamins W/ Minerals [Multivitamin Men 50+] 1 tab PO DAILY 01/11/20 Doxycycline Hyclate [Vibramycin] 100 mg PO Q12H #10 cap 01/17/20 Rivaroxaban [Xarelto] 10 mg PO DAILY #14 tab 01/17/20 Decision To Admit - Decistion To Admit Decision to Admit Date: 02/01/20 Decision to Admit Time: 21:40
[2020-02-01] MEDS ORDERED: PIPERACILLIN/TAZOBACTAM 3.375 GM in SODIUM CHLORIDE 0.9% 100ML 100 ML IVPB ONE (13:06)
--- NOTE | 2020-02-01 14:10 | RAD ---
EXAM DESCRIPTION: Chest,1 View CLINICAL HISTORY: 80 years Male, SOB COMPARISON: 10/02/2018 TECHNIQUE: Single view radiograph of the chest. IMPRESSION: Enlarged cardiac silhouette. Calcified aorta. Stable cardiac device left chest wall. Elevation right hemidiaphragm. Increased left greater than right perihilar congestion versus bronchitis. Mild blunting of the right costophrenic angle could represent small pleural effusion versus atelectasis. No pneumothorax. Thoracic spondylosis. Electronically signed by: Bharath Roy MD 02/01/2020 2:09 PM SERVICE PARTS COORDINATOR
--- NOTE | 2020-02-01 18:32 | CT ---
PROCEDURE: CTA Chest CLINICAL HISTORY: 80 years Male SOB, elevated DD COMPARISON: None. TECHNIQUE: Contiguous axial images obtained through the chest during the infusion of IV contrast. Reformatted images obtained. MIP reformatted images obtained. This exam was performed according to our department optimization program which includes automated exposure control, adjustment of the mA and/or kv according to patient size and/or use of iterative reconstruction technique. FINDINGS: The visualized upper abdominal organs appear unremarkable. Coronary calcifications/stents. There is a left cardiac pacemaker device with pacemaker leads visualized in the right atrium and right ventricle. There are scattered small mediastinal lymph nodes. Atherosclerotic calcifications in the thoracic aorta. The study is suboptimal for pulmonary embolism evaluation secondary to contrast bolus timing and motion artifact. No large central pulmonary emboli are identified. There are patchy groundglass opacities scattered throughout the lungs. No pleural effusions. No pneumothorax. Degenerative changes in the spine. IMPRESSION: The study is suboptimal for pulmonary embolism evaluation. No large central pulmonary emboli are identified. Commonly reported imaging features of covid pneumonia are present. Other processes such as influenza pneumonia and organizing pneumonia, as can be seen with drug toxicity and connective tissue disease, can cause similar imaging pattern. [PneTyp] Electronically signed by: Murtaza Salazar MD 02/01/2020 6:31 PM DESIGN ASSEMBLER
--- NOTE | 2020-02-01 21:51 | HP ---
SUPERVISING PHYSICIAN: Wilber Grigsby MD CHIEF COMPLAINT: Shortness of breath. HISTORY OF PRESENT ILLNESS: Mr. Frank is a 80-year-old male patient who presented to the Emergency Department today complaining of some shortness of breath. In December he had bilateral knee replacements and has gone to rehab at [facility] and discharged 3 days ago. Apparently, in rehab the patient developed a low-grade fever and was tested for Covid and found to be positive. The patient was discharged from rehab, went home, had developed some shortness of breath with exertion. His vital signs on presentation to the Emergency Room showed oxygen saturation 84% on room air, was obviously short of breath, blood pressure was 139/2, he was afebrile at 97.9. Laboratory studies showed a hemoglobin of 9.6, hematocrit 20.2, white count 9.8, low lymphocyte count was also noted with a left shift. Blood gas analysis in the Emergency Room today showed he had hypoxemia with a P02 of 67 and that was report of nasal cannula but saturation 94%, PC02 of 38, bicarb 26, pH of 7.454. Chemistries showed mildly low sodium of 132, BNP a little elevated at 319, he did have a troponin initially of 0.06, six hours later repeated at 0.06. Lactic acid 1.2. Normal anion gap, BUN 19, creatinine 1.21. D-dimer was elevated after which a thoracic CTA was completed with no large central pulmonary emboli was identified with common findings of Covid pneumonia showing patchy ground glass opacities scattered throughout the lungs. Given diagnosis of Covid, room saturations 84%, not normally on , the patient is going to be admitted for treatment of covid pneumonitis. He was admitted in stable condition. PAST MEDICAL HISTORY: 1. Seasonal allergies. 2. Coronary artery disease. 3. Hyperlipidemia. 4. Hypertension. 5. Osteoarthritis of bilateral knees. PAST SURGICAL HISTORY: 1. Bilateral knee replacement on 01/14/20. 1. Coronary stent placement. 2. Pacemaker insertion. HOME MEDICATIONS: Awaiting an updated list of home medications in the electronic medical records. ALLERGIES: RIFAMPIN, BACTRIM . SOCIAL HISTORY: The patient lives in [place]. He is . 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 He denies any tobacco, alcohol illicit drug use. REVIEW OF SYSTEMS: CONSTITUTIONAL: Denies chills or fever. HEENT: Denies headaches. vision changes, sore throat. nasal congestion, earaches. CHEST: As noted in hopefully. Increasing shortness of breath with cough. Denies orthopnea, wheezing. HEART: Denies chest pain, palpitations, tachycardia or syncopal episodes. ABDOMEN: Denies nausea, vomiting, diarrhea or constipation, abdominal pain. GENITOURINARY: Denies dysuria, hematuria or polyuria but has had a history of urinary retention postoperative and has Samuel catheter in place. MUSCULOSKELETAL: As noted in history of present illness with bilateral knee replacement. SKIN: Denies lesions, rashes, moles or unexplained changes. NEUROLOGIC: Denies ataxia, seizures, vision changes syncopal episodes or other focal neurological deficits. HEMATOLOGICAL: Denies unexplained bleeding, easy bruising or transfusion reactions. PHYSICAL EXAMINATION: VITAL SIGNS: In the Emergency Room showed saturations of 84% on room air with respirations of 22. Blood pressure 139/72, heart rate 95, afebrile at 97.9. GENERAL: The patient seems to be resting comfortably in no acute distress. He is shown to be hypoxic on room air at 82 to 84% but returns to 92% on 4 liter nasal cannula. HEENT: Tympanic membranes are clear bilaterally. Oropharynx is pink, moist, without lesions. NECK: Supple, non-tender, full range of motion, no jugular venous distention. CHEST: Lung sounds are fairly clear, just diminished towards the bases, no obvious rhonchi, rales, or wheezes. CARDIOVASCULAR: Regular rate and rhythm without appreciable murmurs, rubs, or gallops. ABDOMEN: Soft, non-tender, positive bowel sounds. EXTREMITIES: No cyanosis, clubbing, or edema. Bilateral knee replacements with incisions showing to be without any complications. NEUROLOGIC: Cranial nerves II through XII are grossly intact. Facial features were symmetrical. Extraocular movements was negative. No notable nystagmus. SKIN: Warm, pink, dry. LABORATORY: White count 9,800, hemoglobin 9.6, hematocrit 28.2, platelet count 315,000, differential does show a left shift with a low lymphocyte count. D- dimer is elevated at 440. Blood gas analysis - PCO2 of 38, PO2 of 67, bicarb 26.3, showing 95% saturation on nasal cannula. Chemistries - sodium 132, potassium. 4.6, BUN 19, creatinine 1.21. Troponin 0.06, six hours apart unchanged. Total bilirubin 1.2, ALT and AST both normal. C-reactive protein and rest of Covid labs are pending. Urinalysis pending. RADIOLOGY: CT of the chest per radiology interpretation showed no large central pulmonary emboli, noted suboptimal pulmonary embolus, on evaluation there was noted common features of Covid pneumonia with ground glass opacities. ASSESSMENT: 1. Covid pneumonitis. 2. Normocytic normochromic anemia status post total knee replacement, less than 3 weeks. 3. Mild hyponatremia. 4. History of coronary artery disease. 5. History of recent bilateral knee replacement. 6. Hyperlipidemia. 7. Hypertension. PLAN: The patient is going to be admitted for treatment of Covid pneumonitis. He will be started on treatment with Remdesivir, azithromycin, Rocephin, Decadron, Align and Protonix. We will have home on albuterol breathing treatments and aggressive pulmonary hygiene. Will follow his labs as per protocol. I would anticipate his length of stay to be at least 2 to 3 days and have physical therapy consultation as well. Until we can transition patient to outpatient management, we will continue to monitor and treat as needed. [id number] [facility]
[2020-02-01] MEDS ORDERED: MAGNESIUM HYDROXIDE 30 ML UD PO PRN (23:35)
[2020-02-01] MEDS ORDERED: ONDANSETRON INJ 4 MG/2 ML VIAL IV PRN (23:35)
[2020-02-01] MEDS ORDERED: SODIUM CHLORIDE 0.9% (FLUSH) 10 ML SYG IV PRN (23:35)
[2020-02-01] MEDS ORDERED: ACETAMINOPHEN 325 MG TAB PO PRN (23:35)
[2020-02-01] MEDS ORDERED: ALBUTEROL INHALER 64 PUFF/8GM INH PRN (23:41)
[2020-02-01] MEDS ORDERED: AZITHROMYCIN IV 500 MG in SODIUM CHLORIDE 0.9% 250ML 250 ML IVPB SCH (23:45)
[2020-02-01] MEDS ORDERED: IV SET AND CAP CHANGE INJ INJ SCH (23:45)
[2020-02-01] MEDS ORDERED: REMDESIVIR 200 MG in SODIUM CHLORIDE 0.9% 250ML 250 ML IVPB SCH (23:45)
[2020-02-01] MEDS ORDERED: cefTRIAXone SODIUM 1 GM in SODIUM CHL 0.9% 50ML MIN-BAG+ 50 ML IVPB SCH (23:45)
[2020-02-01] MEDS ORDERED: cefTRIAXone SODIUM 1 GM VIAL ONE (23:50)
[2020-02-01] MEDS ORDERED: SODIUM CHLORIDE 0.9% 250ML 250 ML ONE ×2 (23:50→23:55)
[2020-02-01] MEDS ORDERED: SODIUM CHL 0.9% 50ML MIN-BAG+ 50 ML IVPB ONE (23:50)
[2020-02-01] MEDS ORDERED: AZITHROMYCIN IV 500 MG VIAL IVPB ONE (23:50)
[2020-02-01] MEDS ORDERED: REMDESIVIR 200 MG ONE (23:55)
[2020-02-02] MEDS ORDERED: PANTOPRAZOLE SODIUM IV 40 MG VIAL ONE (04:30)
[2020-02-02] MEDS ORDERED: ALBUTEROL INHALER 64 PUFF/8GM INH ONE (05:00)
[2020-02-02] MEDS ORDERED: PANTOPRAZOLE SODIUM IV 40 MG VIAL IV SCH (06:30)
[2020-02-02] MEDS ORDERED: METOPROLOL SUCCINATE XL 25 MG TAB PO ONE (07:55)
[2020-02-02] MEDS ORDERED: BIFIDOBACTERIUM INFANTIS 4 MG CAP ONE (07:55)
[2020-02-02] MEDS ORDERED: ASPIRIN (ENTERIC COATED) 325 MG TAB PO ONE (07:55)
[2020-02-02] MEDS ORDERED: FUROSEMIDE 40 MG TAB ONE (07:55)
[2020-02-02] MEDS ORDERED: CITALOPRAM HBR 20 MG TAB ONE (07:55)
[2020-02-02] MEDS ORDERED: RIVAROXABAN 10 MG TAB ONE (07:55)
[2020-02-02] MEDS ORDERED: DEXAMETHASONE INJ 10 MG/ML VIAL ONE (07:55)
[2020-02-02] MEDS ORDERED: LEVOTHYROXINE SODIUM 0.1 MG TAB ONE (07:56)
[2020-02-02] MEDS ORDERED: ALBUTEROL INHALER 64 PUFF/8GM INH SCH (08:00)
[2020-02-02] MEDS ORDERED: REMDESIVIR 100 MG in SODIUM CHLORIDE 0.9% 250ML 250 ML IVPB SCH (09:00)
[2020-02-02] MEDS ORDERED: LEVOTHYROXINE SODIUM 0.1 MG TAB PO SCH (09:00)
[2020-02-02] MEDS ORDERED: ASPIRIN TABLET 325 MG TAB PO SCH (09:00)
[2020-02-02] MEDS ORDERED: NON-FORMULARY MEDICATION 1 EA MIS (Simvastatin [Simvastatin] 40 MG) PO SCH (09:00)
[2020-02-02] MEDS ORDERED: CITALOPRAM HBR 20 MG TAB PO SCH (09:00)
[2020-02-02] MEDS ORDERED: DEXAMETHASONE INJ 10 MG/ML VIAL IV SCH (09:00)
[2020-02-02] MEDS ORDERED: BIFIDOBACTERIUM INFANTIS 4 MG CAP PO SCH (09:00)
[2020-02-02] MEDS ORDERED: METOPROLOL SUCCINATE XL 25 MG TAB PO SCH (09:00)
[2020-02-02] MEDS ORDERED: RIVAROXABAN 10 MG TAB PO SCH (09:00)
[2020-02-02] MEDS ORDERED: FUROSEMIDE 40 MG TAB PO SCH (09:00)
[2020-02-02] MEDS ORDERED: REMDESIVIR 100 MG ONE (11:15)
[2020-02-02] MEDS ORDERED: SODIUM CHLORIDE 0.9% 250ML 250 ML ONE (11:15)
[2020-02-02 13:01] VITALS: BP 132/81; TEMP 98.5; O2SAT 96
--- NOTE | 2020-02-02 17:38 | DS ---
SUPERVISING PHYSICIAN: Wilber Grigsby MD DISCHARGE DIAGNOSIS: 1. Covid pneumonitis with worsening hypoxia. 2. Elevated troponin, unable to rule out non-STEMI. 3. Normocytic normochromic anemia status post total knee replacement on 01/13/20. 4. Mild hypokalemia. 5. History of coronary artery disease. 6. History of recent bilateral knee replacement. 7. Hyperlipidemia. 8. Hypertension. HISTORY OF PRESENT ILLNESS: Mr. Frank is a 80-year-old male patient who presented to the Emergency Department today complaining of some shortness of breath. In December he had bilateral knee replacements and has gone to rehab at [facility] and discharged 3 days ago. Apparently, in rehab the patient developed a low-grade fever and was tested for Covid and found to be positive. The patient was discharged from rehab, went home, had developed some shortness of breath with exertion. His vital signs on presentation to the Emergency Room showed oxygen saturation 84% on room air, was obviously short of breath, blood pressure was 139/2, he was afebrile at 97.9. Laboratory studies showed a hemoglobin of 9.6, hematocrit 20.2, white count 9.8, low lymphocyte count was also noted with a left shift. Blood gas analysis in the Emergency Room today showed he had hypoxemia with a P02 of 67 and that was report of nasal cannula but saturation 94%, PC02 of 38, bicarb 26, pH of 7.454. Chemistries showed mildly low sodium of 132, BNP a little elevated at 319, he did have a troponin initially of 0.06, six hours later repeated at 0.06. Lactic acid 1.2. Normal anion gap, BUN 19, creatinine 1.21. D-dimer was elevated after which a thoracic CTA was completed with no large central pulmonary emboli was identified with common findings of Covid pneumonia showing patchy ground glass opacities scattered throughout the lungs. Given diagnosis of Covid, room saturations 84%, not normally on 02, the patient is going to be admitted for treatment of Covid pneumonitis. He was admitted in stable condition. LABORATORY STUDIES: White count on discharge was 9,700, hemoglobin 9.5, hematocrit 27.9, platelet count 310,000, differential does show a left shift. Coagulation studies showed his D-dimer initially was 440, on discharge/ transfer was 3030, elevated fibrinogen at 633, elevated PTT of 34.6. Blood gas analysis prior to discharge showed pH 7.4 with P02 of 54, PC02 of 37, bicarb 25. Oxygen saturations on nonrebreather initially 89% compared to admission blood gases on 2 liter nasal cannula with pH of 7.5, PC02 of 38, P02 67, oxygen saturation 95%. Chemistries on discharge showed a sodium 135, potassium 3.5, creatinine 1.10. Liver functions within normal limits. Calcium 7.9 corrected to 8.2 with albumin 3.1. Troponin initial 0.06 x2 with elevation overnight prior to transfer to 0.11. C-reactive protein was 17.2, BNP elevated at 319. Urinalysis showed 100 of protein, 15 of ketones, moderate blood, trace of leukoesterase with microscopic revealing 5 to 10 RBC, 1 to 3 WBC, rare bacteria. MICROBIOLOGY: Blood cultures were negative at 24 hours. RADIOLOGY: CT of the chest on admission and per radiology interpretation showed suboptimal for pulmonary embolism evaluation but no large central pulmonary emboli were identified that were commonly reported imaging features of Covid pneumonia. Please see that report for details. EKG 12-lead showed 100% paced ventricular rhythm. HOSPITAL COURSE: Mr. Frank was initially admitted on 02/01/20 for Covid pneumonitis in his history of present illness. He did initially present fairly stable with his oxygen requirements initially 84% on room air but then on 95% on 2 liter nasal cannula, actually oxygen saturation 95 t0 96%. He was afebrile at 97.9. This morning he slowly showed a decline in his saturations, showing to be hypoxic even on a nasal cannula requiring advancement with nasal cannula at 4 liters showing 98% saturations. Once on a nonrebreather, he was showing 86% on high flow with initial treatment and with further evaluation and management he improved to 96% on a nonrebreather but showing to be in no respiratory distress. At time of discharge, he was showing to be fairly stable, but again, oxygenation was required, nonrebreather saturation around 94 to 95% with easy desaturation to the low 80s with minimal exertional effort. Given his comorbidities, his increasing need for oxygen and showing his ABGs to be hypoxic on nasal cannula, requiring going to a nonrebreather and elevated troponin, it was decided that the patient would be best served if he was transferred to higher level of care for both cardiology and pulmonology and probably need for an ICU bed. Transfer was accepted at [facility] in [place] which is very greatly appreciated and the patient is to be transferred by ground ambulance. Please see vital signs and nurses notes on transfer. PLAN: Mr. Frank was transferred to higher level of care at [facility] in [place] for cardiology and pulmonology, infectious disease needs as well as ICU not available in [place]. He was transferred via ground ambulance. Condition on transfer was guarded but stable. FINAL DISPOSITION: Transferred to [facility] via grand ambulance. Dr. Grigsby, supervising physician, was notified of the patient's condition and need for transfer and transfer arrangements at time of transfer. [id number] [facility]
[2020-02-02] MEDS ORDERED: GABAPENTIN 300 MG CAP PO SCH (21:00)
[2020-02-02] MEDS ORDERED: NON-FORMULARY MEDICATION 1 EA MIS (Potassium Chloride [Micro-K] 10 MEQ) PO SCH (21:00)
[2020-02-02] MEDS ORDERED: DOXAZOSIN MESYLATE 4 MG PO SCH (21:00)
== END 2020-02-02 16:30 | disposition short-term general hospital (02) | DRG 177 ==
LOC: ER 12:37 → OBSVTOIN 21:50 → MS 21:50
PROVIDERS: ADMIT Nurse Practitioner Family; ATTEND Nurse Practitioner Family
PROC: B32T1ZZ Computerized Tomography (CT Scan) of Left Pulmonary Artery using Low Osmolar Contrast (ICD-10-PCS; principal; 2020-02-01)
PROC: B32S1ZZ Computerized Tomography (CT Scan) of Right Pulmonary Artery using Low Osmolar Contrast (ICD-10-PCS; 2020-02-01)
PROC: XW033E5 Introduction of Remdesivir Anti-infective into Peripheral Vein, Percutaneous Approach, New Technology Group 5 (ICD-10-PCS; 2020-02-01)
DX: U07.1 COVID-19 (principal); J12.89 Other viral pneumonia; I21.4 Non-ST elevation (NSTEMI) myocardial infarction; E87.1 Hypo-osmolality and hyponatremia; R09.02 Hypoxemia; D64.9 Anemia, unspecified; E87.6 Hypokalemia; I25.10 Atherosclerotic heart disease of native coronary artery without angina pectoris; E78.5 Hyperlipidemia, unspecified; I10 Essential (primary) hypertension; J30.2 Other seasonal allergic rhinitis; K21.9 Gastro-esophageal reflux disease without esophagitis; Z96.653 Presence of artificial knee joint, bilateral; Z95.5 Presence of coronary angioplasty implant and graft; Z95.0 Presence of cardiac pacemaker; Z88.1 Allergy status to other antibiotic agents; Z88.3 Allergy status to other anti-infective agents; Z79.82 Long term (current) use of aspirin; Z79.1 Long term (current) use of non-steroidal anti-inflammatories (NSAID); Z79.01 Long term (current) use of anticoagulants; Z79.899 Other long term (current) drug therapy